=== PATIENT | female | born 1990 | race Caucasian/White ===

== ENCOUNTER 2017-08-03 11:13 | Emergency (ER) | payer OTHER | END 2017-08-03 15:12 | disposition home or self-care (01) | LOC: FTE 11:13 | DX: M25.531 Pain in right wrist (principal); Z87.891 Personal history of nicotine dependence | CPT/HCPCS: 73110; 73110-RT; 99283-25 ==

== ENCOUNTER 2018-03-26 16:02 | Emergency (ER) | payer OTHER | END 2018-03-26 19:18 | disposition home or self-care (01) | LOC: FTE 16:02 | DX: O99.89 Other specified diseases and conditions complicating pregnancy, childbirth and the puerperium (principal); R19.7 Diarrhea, unspecified; R40.2412 Glasgow coma scale score 13-15, at arrival to emergency department; Z3A.01 Less than 8 weeks gestation of pregnancy | CPT/HCPCS: 99282; Z7502 ==

== ENCOUNTER 2018-06-24 09:47 | Outpatient (CLI) | payer OTHER ==
[2018-06-24 10:54] LABS: ADD UMIC NO; UR ASCORBIC ACID NEGATIVE (NEGATIVE); UR BACTERIA FEW /HPF (NONE SEEN); UR BILIRUBIN (Dip) NEGATIVE (NEGATIVE); UR BLOOD (Dip) NEGATIVE (NEGATIVE); UR CLARITY SLIGHTLY CLOUDY (CLEAR); UR COLOR YELLOW (YELLOW); UR GLUCOSE (Dip) NEGATIVE (NEGATIVE); UR KETONES (Dip) NEGATIVE (NEGATIVE); UR LEUKOCYTE ESTERASE (Dip) NEGATIVE Leu/ul (NEGATIVE); UR MUCUS MODERATE /HPF (NONE SEEN); UR NITRITE (Dip) NEGATIVE (NEGATIVE); UR RBC 2 /HPF (0-5); UR SPECIFIC GRAVITY (Dip) 1.028 (1.003-1.030); UR SQUAMOUS EPITHELIAL CELL MODERATE /HPF (FEW); UR TOTAL PROTEIN (Dip) NEGATIVE (NEGATIVE); UR UROBILINOGEN (Dip) 1+ mg/dL (NEGATIVE); UR WBC 1 /HPF (0-5)
== END 2018-06-24 11:40 | disposition home or self-care (01) ==
LOC: OBT 09:47 → L-D 09:48 → OBT 11:40
DX: O62.9 Abnormality of forces of labor, unspecified (principal); Z3A.19 19 weeks gestation of pregnancy
CPT/HCPCS: 76815; 76817; 81001; 81003; 87086

== ENCOUNTER 2018-10-30 05:55 | Inpatient (IN) | payer OTHER ==
[2018-10-30] MEDS ORDERED: MISOPROSTOL 200 MCG TAB PR ×2 (06:30→13:00)
[2018-10-30] MEDS ORDERED: METHYLERGONOVINE 0.2 MG INJ IM ×2 (06:30→13:00)
[2018-10-30] MEDS ORDERED: OXYTOCIN 30 UNITS/LR 500 ML IV ×3 (06:30→13:00)
[2018-10-30] MEDS ORDERED: CARBOPROST 250 MCG INJ IM ×2 (06:30→13:00)
[2018-10-30 06:52] LABS: ADD MAN DIFF? NO
[2018-10-30 06:56] LABS: BASOPHILS % 0.2 % (0.0-2.0); EOSINOPHILS # 0.3 10^3/ul (0.0-0.5); EOSINOPHILS % 2.4 % (0.0-7.0); HEMATOCRIT 34.4 % (37.0-47.0); HEMOGLOBIN 10.8 g/dl (12.0-16.0); LYMPHOCYTES # 1.9 10^3/ul (0.8-2.9); LYMPHOCYTES % 17.9 % (15.0-51.0); MEAN CORPUSCULAR HEMOGLOBIN 26.5 pg (29.0-33.0); MEAN CORPUSCULAR HGB CONC 31.4 g/dl (32.0-37.0); MEAN CORPUSCULAR VOLUME 84.5 fl (82.0-101.0); MEAN PLATELET VOLUME 9.5 fl (7.4-10.4); MONOCYTE # 0.5 10^3/ul (0.3-0.9); MONOCYTES % 5.1 % (0.0-11.0); NEUTROPHIL # 7.8 10^3/ul (1.6-7.5); NEUTROPHILS % 73.7 % (39.0-77.0); PLATELET COUNT 306 10^3/UL (140-415); RED BLOOD COUNT 4.07 10^6/ul (4.20-5.40); RED CELL DISTRIBUTION WIDTH 16.5 % (11.5-14.5)
[2018-10-30 06:56] LABS: WHITE BLOOD COUNT 10.6 10^3/ul (4.8-10.8)
[2018-10-30 07:17] LABS: INR 1.06; PARTIAL THROMBOPLASTIN TIME 25.3 Sec (23.0-35.0); PROTIME 13.9 Sec (11.9-14.9); PT RATIO 1.1
[2018-10-30 07:56] LABS: HEPATITIS B SURFACE ANTIGEN NEGATIVE (NEGATIVE)
[2018-10-30] MEDS: LACTATED RINGER'S 1,000 ML IV (08:02)
[2018-10-30] MEDS ORDERED: FENTAnyl 50 MCG/ML VIAL (08:39)
[2018-10-30] MEDS ORDERED: morphine SULFATE/PF (10 MG/10 ML) INJ (08:39)
[2018-10-30] MEDS ORDERED: PHENYLephrine 10 MG INJ (08:49)
[2018-10-30] MEDS ORDERED: DEXAMETHASONE 4 MG/ML 1 ML INJ (08:53)
[2018-10-30] MEDS ORDERED: ONDANSETRON 4 MG INJ (08:54)
[2018-10-30] MEDS: CEFAZOLIN 3 GM in DEXTROSE 5% 100 ML IV (09:03)
[2018-10-30] MEDS ORDERED: HYDROmorphONE 0.5 MG/0.5 ML SYG IV ×2 (10:00)
[2018-10-30] MEDS ORDERED: DIPHENHYDRAMINE 50 MG INJ IV (10:00)
[2018-10-30] MEDS ORDERED: NALOXONE (0.4 MG/ML) INJ IV (10:00)
[2018-10-30] MEDS ORDERED: ZOLPIDEM 5 MG TAB PO (10:00)
[2018-10-30] MEDS ORDERED: ONDANSETRON 4 MG INJ IV (10:00)
[2018-10-30] MEDS: OXYTOCIN 30 UNITS/LR 500 ML IV ×2 (11:12→15:12)
[2018-10-30] MEDS: DEXTROSE 5%-LR 1,000 ML IV ×2 (12:35→23:53)
[2018-10-30] MEDS ORDERED: METHYLERGONOVINE 0.2 MG TAB PO (13:00)
[2018-10-30] MEDS ORDERED: LANOLIN HPA 1 PKT TOP (13:00)
[2018-10-30] MEDS: IBUPROFEN 800 MG TAB PO ×2 (14:00→22:00)
[2018-10-30] MEDS: CEFAZOLIN 2 GM/50 ML (PMX) 50 ML IVPB ×2 (15:01→23:01)
[2018-10-30 16:02] LABS: RAPID PLASMA REAGIN NONREACTIVE (NR)
[2018-10-30] MEDS: SENNA/DOCUSATE NA (8.6MG/50MG) TAB PO (21:28)
[2018-10-31] MEDS: DEXTROSE 5%-LR 1,000 ML IV (04:35)
[2018-10-31] MEDS: KETOROLAC 30 MG INJ IV (05:53)
[2018-10-31] MEDS: CEFAZOLIN 2 GM/50 ML (PMX) 50 ML IVPB (05:53)
[2018-10-31] MEDS: IBUPROFEN 800 MG TAB PO ×3 (06:00→21:17)
[2018-10-31 08:56] LABS: ADD MAN DIFF? NO
[2018-10-31 08:59] LABS: BASOPHILS % 0.2 % (0.0-2.0); EOSINOPHILS # 0.1 10^3/ul (0.0-0.5); EOSINOPHILS % 1.3 % (0.0-7.0); HEMATOCRIT 28.8 % (37.0-47.0); HEMOGLOBIN 9.1 g/dl (12.0-16.0); LYMPHOCYTES # 2.2 10^3/ul (0.8-2.9); MEAN CORPUSCULAR HEMOGLOBIN 26.9 pg (29.0-33.0); MEAN CORPUSCULAR HGB CONC 31.6 g/dl (32.0-37.0); MEAN CORPUSCULAR VOLUME 85.2 fl (82.0-101.0); MONOCYTE # 0.8 10^3/ul (0.3-0.9); MONOCYTES % 7.5 % (0.0-11.0); NEUTROPHIL # 6.8 10^3/ul (1.6-7.5); NEUTROPHILS % 68.3 % (39.0-77.0); PLATELET COUNT 297 10^3/UL (140-415); RED BLOOD COUNT 3.38 10^6/ul (4.20-5.40); RED CELL DISTRIBUTION WIDTH 16.5 % (11.5-14.5)
[2018-10-31] MEDS: SENNA/DOCUSATE NA (8.6MG/50MG) TAB PO ×2 (10:09→21:16)
[2018-10-31] MEDS: MAGNESIUM HYDROXIDE 30ML CUP PO (10:10)
[2018-10-31] MEDS: DIPHTH/TET/ACEL PERTUSS (ADULT) 0.5 ML VIAL IM* (11:00)
[2018-10-31] MEDS ORDERED: HYDROCODONE/APAP (5/325) TAB NGT (11:00)
[2018-10-31] MEDS: HYDROCODONE/APAP (5/325) TAB GTB ×2 (13:24→21:17)
[2018-11-01] MEDS: HYDROCODONE/APAP (5/325) TAB GTB (05:20)
[2018-11-01] MEDS: IBUPROFEN 800 MG TAB PO ×3 (05:21→21:53)
[2018-11-01] MEDS: SENNA/DOCUSATE NA (8.6MG/50MG) TAB PO ×2 (08:39→21:52)
[2018-11-01] MEDS: HYDROCODONE/APAP (5/325) TAB PO ×3 (08:48→21:53)
[2018-11-02] MEDS: HYDROCODONE/APAP (5/325) TAB PO ×2 (05:29→13:47)
[2018-11-02] MEDS: IBUPROFEN 800 MG TAB PO ×2 (05:30→13:47)
[2018-11-02] MEDS: SENNA/DOCUSATE NA (8.6MG/50MG) TAB PO (08:51)
[2018-11-02] MEDS: MEASLES,MUMPS,RUBELLA VACCINE INJ SC* (09:00)
[2018-11-02] MEDS: DIPHTH/TET/ACEL PERTUSS (ADULT) 0.5 ML VIAL IM* (10:44)
== END 2018-11-02 18:43 | disposition home or self-care (01) | DRG 788 ==
LOC: L-D 05:55 → PP1 12:40
PROVIDERS: Obstetrics & Gynecology
PROC: 10D00Z1 Extraction of Products of Conception, Low, Open Approach (ICD-10-PCS; principal; 2018-10-30 07:30)
PROC: 3E033VJ Introduction of Other Hormone into Peripheral Vein, Percutaneous Approach (ICD-10-PCS; 2018-10-30 07:30)
DX: O65.5 Obstructed labor due to abnormality of maternal pelvic organs (principal); O34.211 Maternal care for low transverse scar from previous cesarean delivery; Z3A.39 39 weeks gestation of pregnancy; Z37.0 Single live birth
CPT/HCPCS: 85025; 85610; 85730; 86592; 86850; 86900; 86901; 87340; 90715; 99464